=== PATIENT | female | born 1980 | race Asian ===

== ENCOUNTER 2017-06-17 10:55 | Outpatient (CLI) | payer OTHER | END 2017-06-17 14:32 | disposition left against medical advice (07) | LOC: OBT 10:55 → L-D 10:55 → OBT 14:32 | DX: O46.8X3 Other antepartum hemorrhage, third trimester (principal); Z3A.37 37 weeks gestation of pregnancy; Z53.21 Procedure and treatment not carried out due to patient leaving prior to being seen by health care provider | CPT/HCPCS: 76818 ==

== ENCOUNTER 2017-06-18 17:07 | Inpatient (IN) | payer OTHER ==
[2017-06-18] MEDS ORDERED: OXYTOCIN 30 UNITS/LR 500 ML IV ×2 (18:00→19:30)
[2017-06-18] MEDS ORDERED: MISOPROSTOL 200 MCG TAB PR (18:00)
[2017-06-18] MEDS ORDERED: METHYLERGONOVINE 0.2 MG INJ IM (18:00)
[2017-06-18] MEDS ORDERED: LIDOCAINE 1% (MPF) 30 ML INJ INJ (18:00)
[2017-06-18] MEDS ORDERED: BUTORPHANOL 2 MG INJ IV (18:00)
[2017-06-18] MEDS ORDERED: IBUPROFEN 600 MG TAB PO (18:00)
[2017-06-18] MEDS ORDERED: CARBOPROST 250 MCG INJ IM (18:00)
[2017-06-18] MEDS: LACTATED RINGER'S 1,000 ML IV ×2 (18:10→20:01)
[2017-06-18] MEDS: AMPICILLIN 2 GM/NS (PMX) 100 ML IV (18:11)
[2017-06-18 18:23] LABS: ADD MAN DIFF? NO
[2017-06-18 18:28] LABS: BASOPHILS % 0.2 % (0.0-2.0); EOSINOPHILS # 0.2 10^3/ul (0.0-0.5); EOSINOPHILS % 0.9 % (0.0-7.0); HEMATOCRIT 36.1 % (37.0-47.0); HEMOGLOBIN 12.8 g/dl (12.0-16.0); LYMPHOCYTES # 1.6 10^3/ul (0.8-2.9); LYMPHOCYTES % 9.8 % (15.0-51.0); MEAN CORPUSCULAR HEMOGLOBIN 31.4 pg (29.0-33.0); MEAN CORPUSCULAR HGB CONC 35.5 g/dl (32.0-37.0); MEAN CORPUSCULAR VOLUME 88.5 fl (82.0-101.0); MEAN PLATELET VOLUME 9.5 fl (7.4-10.4); MONOCYTE # 0.8 10^3/ul (0.3-0.9); MONOCYTES % 4.6 % (0.0-11.0); NEUTROPHIL # 13.8 10^3/ul (1.6-7.5); NEUTROPHILS % 83.7 % (39.0-77.0); PLATELET COUNT 316 10^3/UL (140-415); RED BLOOD COUNT 4.08 10^6/ul (4.20-5.40); RED CELL DISTRIBUTION WIDTH 12.6 % (11.5-14.5)
[2017-06-18 18:28] LABS: WHITE BLOOD COUNT 16.5 10^3/ul (4.8-10.8)
[2017-06-18 18:50] LABS: INR 0.94; PROTIME 12.7 Sec (11.9-14.9)
[2017-06-18 18:51] LABS: PARTIAL THROMBOPLASTIN TIME 33.9 Sec (25.0-35.0)
[2017-06-18 19:41] LABS: HEPATITIS B SURFACE ANTIGEN NEGATIVE (NEGATIVE)
[2017-06-18] MEDS ORDERED: FENTAnyl 2MCG/ML-ROPIV 0.2% 100 ML (20:06)
[2017-06-18 20:39] LABS: AMPHETAMINE/METHAMPHETAMINE Negative (NEGATIVE); BARBITURATES Negative (NEGATIVE); BENZODIAZEPINES Negative (NEGATIVE); CANNABINOIDS Negative (NEGATIVE); COCAINE Negative (NEGATIVE); OPIATES Negative (NEGATIVE)
[2017-06-18] MEDS: AMPICILLIN 1 GM/NS (PMX) 50 ML IV (21:56)
[2017-06-19] MEDS: OXYTOCIN 30 UNITS/LR 500 ML IV ×3 (00:25→05:35)
[2017-06-19] MEDS ORDERED: LACTATED RINGER'S 1,000 ML IV (00:37)
[2017-06-19] MEDS ORDERED: MISOPROSTOL 200 MCG TAB PR ×2 (01:00→02:30)
[2017-06-19] MEDS ORDERED: LIDOCAINE 1% (MPF) 30 ML INJ INJ (01:00)
[2017-06-19] MEDS ORDERED: BUTORPHANOL 2 MG INJ IV (01:00)
[2017-06-19] MEDS ORDERED: METHYLERGONOVINE 0.2 MG INJ IM ×2 (01:00→02:30)
[2017-06-19] MEDS ORDERED: CARBOPROST 250 MCG INJ IM ×2 (01:00→02:30)
[2017-06-19] MEDS ORDERED: OXYTOCIN 30 UNITS/LR 500 ML IV ×2 (01:00→02:30)
[2017-06-19] MEDS ORDERED: AMPICILLIN 2 GM/NS (PMX) 100 ML IV (01:00)
[2017-06-19] MEDS ORDERED: HYDROCODONE/APAP (5/325) TAB PO ×2 (02:30)
[2017-06-19] MEDS ORDERED: AMPICILLIN 1 GM/NS (PMX) 50 ML IV (05:00)
[2017-06-19] MEDS: IBUPROFEN 600 MG TAB PO ×4 (05:34→23:47)
[2017-06-19] MEDS ORDERED: PRENATAL VITAMIN PO (09:00)
[2017-06-19] MEDS ORDERED: NON-FORMULARY/PATIENT OWN MED (Fluticasone Furoate (Arnuity Ellipta) 100 MCG) INHALATION (09:00)
[2017-06-19] MEDS: LANOLIN 7 GM TUBE TOP (09:25)
[2017-06-19] MEDS: BENZOCAINE 20% 56 ML SPRAY TOP (09:26)
[2017-06-19] MEDS: WITCH HAZEL/GLYCERIN PAD PR (09:26)
[2017-06-19 10:59] LABS: ADD MAN DIFF? NO
[2017-06-19 11:04] LABS: WHITE BLOOD COUNT 16.2 10^3/ul (4.8-10.8)
[2017-06-19 11:04] LABS: BASOPHILS % 0.1 % (0.0-2.0); EOSINOPHILS # 0.2 10^3/ul (0.0-0.5); EOSINOPHILS % 1.2 % (0.0-7.0); HEMATOCRIT 31.2 % (37.0-47.0); LYMPHOCYTES # 2.1 10^3/ul (0.8-2.9); LYMPHOCYTES % 12.8 % (15.0-51.0); MEAN CORPUSCULAR HEMOGLOBIN 31.5 pg (29.0-33.0); MEAN CORPUSCULAR HGB CONC 35.3 g/dl (32.0-37.0); MEAN CORPUSCULAR VOLUME 89.4 fl (82.0-101.0); MEAN PLATELET VOLUME 9.5 fl (7.4-10.4); MONOCYTE # 0.8 10^3/ul (0.3-0.9); MONOCYTES % 5.1 % (0.0-11.0); NEUTROPHILS % 80.1 % (39.0-77.0); PLATELET COUNT 254 10^3/UL (140-415); RED BLOOD COUNT 3.49 10^6/ul (4.20-5.40); RED CELL DISTRIBUTION WIDTH 12.8 % (11.5-14.5)
[2017-06-19] MEDS: ALBUTEROL HFA 8 GM INHALER INH (21:36)
[2017-06-19 22:35] LABS: RAPID PLASMA REAGIN NONREACTIVE (NR)
[2017-06-20] MEDS: IBUPROFEN 600 MG TAB PO ×4 (06:13→23:54)
[2017-06-20] MEDS: INFLUENZA VIRUS VACCINE 0.5 ML (DISPENSING) IM* (12:51)
[2017-06-20] MEDS: ALBUTEROL HFA 8 GM INHALER INH (22:00)
[2017-06-21] MEDS: IBUPROFEN 600 MG TAB PO ×3 (06:04→18:26)
[2017-06-21] MEDS: SENNA/DOCUSATE NA (8.6MG/50MG) TAB PO (11:15)
[2017-06-21] MEDS: DIPHTH/TET/ACEL PERTUSS (ADULT) 0.5 ML VIAL IM* (11:15)
[2017-06-21 17:44] LABS: ADD UMIC NO; UR ASCORBIC ACID 40 mg/dL (NEGATIVE); UR BILIRUBIN (Dip) NEGATIVE (NEGATIVE); UR BLOOD (Dip) NEGATIVE (NEGATIVE); UR CLARITY CLEAR (CLEAR); UR COLOR YELLOW (YELLOW); UR GLUCOSE (Dip) NEGATIVE (NEGATIVE); UR KETONES (Dip) NEGATIVE (NEGATIVE); UR LEUKOCYTE ESTERASE (Dip) NEGATIVE Leu/ul (NEGATIVE); UR NITRITE (Dip) NEGATIVE (NEGATIVE); UR SPECIFIC GRAVITY (Dip) 1.021 (1.003-1.030); UR TOTAL PROTEIN (Dip) NEGATIVE (NEGATIVE); UR UROBILINOGEN (Dip) NEGATIVE (NEGATIVE)
[2017-06-21 18:10] LABS: ADD MAN DIFF? NO
[2017-06-21 18:12] LABS: BASOPHILS % 0.2 % (0.0-2.0); EOSINOPHILS # 0.6 10^3/ul (0.0-0.5); EOSINOPHILS % 5.7 % (0.0-7.0); HEMATOCRIT 30.8 % (37.0-47.0); HEMOGLOBIN 10.8 g/dl (12.0-16.0); LYMPHOCYTES # 2.2 10^3/ul (0.8-2.9); LYMPHOCYTES % 23.1 % (15.0-51.0); MEAN CORPUSCULAR HEMOGLOBIN 32.1 pg (29.0-33.0); MEAN CORPUSCULAR HGB CONC 35.1 g/dl (32.0-37.0); MEAN CORPUSCULAR VOLUME 91.7 fl (82.0-101.0); MEAN PLATELET VOLUME 9.5 fl (7.4-10.4); MONOCYTE # 0.6 10^3/ul (0.3-0.9); MONOCYTES % 5.7 % (0.0-11.0); NEUTROPHIL # 6.2 10^3/ul (1.6-7.5); NEUTROPHILS % 64.1 % (39.0-77.0); PLATELET COUNT 276 10^3/UL (140-415); RED BLOOD COUNT 3.36 10^6/ul (4.20-5.40); RED CELL DISTRIBUTION WIDTH 12.9 % (11.5-14.5)
[2017-06-21 18:12] LABS: WHITE BLOOD COUNT 9.7 10^3/ul (4.8-10.8)
== END 2017-06-21 19:30 | disposition home or self-care (01) | DRG 775 ==
LOC: OBT 17:07 → PP1 06-19 02:26 → L-D 17:09 → OBT 17:13 → L-D 17:13 → PP1 06-19 17:57 → L-D 19:30
PROVIDERS: Obstetrics & Gynecology
PROC: 10E0XZZ Delivery of Products of Conception, External Approach (ICD-10-PCS; principal; 2017-06-19)
DX: O80 Encounter for full-term uncomplicated delivery (principal); Z37.0 Single live birth; Z3A.37 37 weeks gestation of pregnancy
CPT/HCPCS: 62319; 80307; 81003; 85025; 85610; 85730; 86592; 86900; 86901; 87340; 90686; 90715